=== PATIENT | female | born 1950 | race Caucasian/White ===

== ENCOUNTER 2017-03-31 07:25 | Day surgery (SDC) | payer MEDICARE, BC ==
[2017-03-31 07:39] VITALS: BP 133/79
--- NOTE | 2017-03-31 08:08 | OR ---
Anesthesia Pre Procedure Eval Date of Service: 03/31/17 Pre Procedure Evaluation: Last Vital Signs Temp 36.2 C L 03/31/17 07:36 Pulse 64 03/31/17 07:36 Resp 16 03/31/17 07:36 BP 133/79 03/31/17 07:36 Pulse Ox 95 03/31/17 07:36 Anesthesia Pre Procedure Evaluation DATE: 03/31/2017 TIME: 8 AM INDICATIONS: Spinal stenosis back and radicular pain PAST MEDICAL HISTORY: Long history of low back and radicular pain treated with medication and therapy. She has had epidural steroid injections in the past with good relief, her most recent one was several years ago. She has had increasing low back and radicular pain over the past few months and is seeking relief with an epidural steroid injection today. EXAM: Heart regular; lungs clear ASSESSMENT OF MEDICAL STATUS: Mrs. Sears has benefited from epidural steroid injections in the past and would be an appropriate candidate for an injection at this time. She is, however, Apixaban (Eliquis) and has last taken at 48 hours ago. Although some hospital policies allow epidural injections after 48 hours of last dose, the current SUE guidelines indicate 3-5 days prior to injection. In reviewing her MRI and x-ray in addition to her habitus, I believe that the procedure will be rather difficult and would err on the side of the longer wait time for injection. PLANNED PROCEDURE: The procedure is deferred until she is able to coordinate a time with the surgery scheduled next week. Home Medications: HOME MEDICATIONS Albuterol Sulfate/Ipratropium [Duoneb 2.5-0.5MG/3ML Soln] 3 ml IH QID 11/30/15 [ Last Taken Unknown] Apixaban [Eliquis] 5 mg PO BID 11/30/15 [Last Taken Unknown] Duloxetine HCl [Cymbalta] 60 mg PO DAILY 11/30/15 [Last Taken Unknown] Fluticasone Propionate [Flonase] 1 spray NS DAILY PRN 11/30/15 [Last Taken Unknown] Fluticasone/Salmeterol [Advair 250-50 Diskus] 1 puff IH BID 11/30/15 [Last Taken Unknown] Levothyroxine Sodium [Unithroid] 200 mcg PO DAILY 11/30/15 [Last Taken Unknown] Lisinopril/Hydrochlorothiazide [Zestoretic 20-25 mg Tablet] 1 each PO DAILY [Last Taken 12/21/15 04:30] Melatonin/Pyridoxine HCl (B6) [Melatonin 10 mg Tablet] 1 each PO HS PRN [Last Taken Unknown] Pregabalin [Lyrica] 150 mg PO BID 11/30/15 [Last Taken Unknown] Sotalol HCl [Betapace] 80 mg PO BID 11/30/15 [Last Taken 12/21/15 04:30] metFORMIN HCL [Glucophage] 1,000 mg PO BIDWM 11/30/15 [Last Taken Unknown] metFORMIN HCL [Glucophage] 250 mg PO BIDWM 11/30/15 [Last Taken Unknown] Acetaminophen [Tylenol] 500 - 1,000 mg PO Q4H PRN 01/25/17 [Last Taken Unknown] Blood-Glucose Meter [Blood Glucose Monitoring] 1 each MC DAILY 01/25/17 [Last Taken Unknown] Celecoxib [Celebrex] 100 mg PO BID 01/25/17 [Last Taken Unknown] Levothyroxine Sodium [Synthroid] 25 mcg PO DAILY 01/25/17 [Last Taken Unknown] Mirabegron [Myrbetriq] 50 mg PO DAILY 01/25/17 [Last Taken Unknown] Rosuvastatin Calcium [Crestor] 20 mg PO DAILY 01/25/17 [Last Taken Unknown] Atorvastatin Calcium [Lipitor] 40 mg PO HS 03/30/17 [Last Taken Unknown]
== END 2017-03-31 07:26 | disposition home or self-care (01) ==
LOC: SUR 07:25
PROVIDERS: ATTEND Internal Medicine
DX: M48.06 Spinal stenosis, lumbar region (principal)

== ENCOUNTER 2017-04-04 08:13 | Day surgery (SDC) | payer MEDICARE, BC ==
--- NOTE | 2017-04-04 08:53 | OR ---
Anesthesia Pre Procedure Eval Date of Service: 04/04/17 Pre Procedure Evaluation: Last Vital Signs Temp 36.1 C L 04/04/17 08:24 Pulse 69 04/04/17 08:24 Resp 16 04/04/17 08:24 BP 105/70 04/04/17 08:24 Pulse Ox 93 04/04/17 08:24 Anesthesia Pre Procedure Evaluation DATE: 04/04/2017 TIME: 45 INDICATIONS: Disc bulge and spinal stenosis right radicular pain PAST MEDICAL HISTORY: Mrs. Sears has had a long history of low back pain which is been treated with medication as well as therapy in the past. When he severe radicular pain occurs the most relief she gets is from epidural steroid injections. She has had several injections in the past lasting variable degrees of time, her most recent injection has been over 2 years. I discussed activities of daily living as well as weight reduction with her she does have an understanding of these treatments and their influence on the back and radicular pain. Her most recent episode of pain has been approximately one year and it has been very little exchange specialist that period of time. Over the past 2-3 months however she has had an extension of the pain into the posterior right thigh. I discussed the procedure and risks as well as the prospect of chronic pain with her. History of GERD: No History of smoking: Dull Smoked prior to procedure: No Counseled on smoking day of procedure: Nonapplicable History of sleep apnea: S Treated for REILLY: Yes EXAM: Heart S1-S2 regular; lungs clear bilaterally ASSESSMENT OF MEDICAL STATUS: Appropriate candidate for labor analgesia PLANNED PROCEDURE: Lumbar epidural steroid injection. Home Medications: HOME MEDICATIONS Albuterol Sulfate/Ipratropium [Duoneb 2.5-0.5MG/3ML Soln] 3 ml IH QID 11/30/15 [ Last Taken Unknown] Apixaban [Eliquis] 5 mg PO BID 11/30/15 [Last Taken Unknown] Duloxetine HCl [Cymbalta] 60 mg PO DAILY 11/30/15 [Last Taken Unknown] Fluticasone Propionate [Flonase] 1 spray NS DAILY PRN 11/30/15 [Last Taken Unknown] Fluticasone/Salmeterol [Advair 250-50 Diskus] 1 puff IH BID 11/30/15 [Last Taken Unknown] Levothyroxine Sodium [Unithroid] 200 mcg PO DAILY 11/30/15 [Last Taken Unknown] Lisinopril/Hydrochlorothiazide [Zestoretic 20-25 mg Tablet] 1 each PO DAILY [Last Taken 04/04/17 07:00] Melatonin/Pyridoxine HCl (B6) [Melatonin 10 mg Tablet] 1 each PO HS PRN [Last Taken Unknown] Pregabalin [Lyrica] 150 mg PO BID 11/30/15 [Last Taken Unknown] Sotalol HCl [Betapace] 80 mg PO BID 11/30/15 [Last Taken 04/04/17 07:00] metFORMIN HCL [Glucophage] 1,000 mg PO BIDWM 11/30/15 [Last Taken Unknown] metFORMIN HCL [Glucophage] 250 mg PO BIDWM 11/30/15 [Last Taken Unknown] Acetaminophen [Tylenol] 500 - 1,000 mg PO Q4H PRN 01/25/17 [Last Taken Unknown] Blood-Glucose Meter [Blood Glucose Monitoring] 1 each MC DAILY 01/25/17 [Last Taken Unknown] Celecoxib [Celebrex] 100 mg PO BID 01/25/17 [Last Taken Unknown] Levothyroxine Sodium [Synthroid] 25 mcg PO DAILY 01/25/17 [Last Taken Unknown] Mirabegron [Myrbetriq] 50 mg PO DAILY 01/25/17 [Last Taken Unknown] Rosuvastatin Calcium [Crestor] 20 mg PO DAILY 01/25/17 [Last Taken Unknown] Atorvastatin Calcium [Lipitor] 40 mg PO HS 03/30/17 [Last Taken Unknown]
[2017-04-04] MEDS ORDERED: DEXAMETHASONE SOD PHOSPHATE 10 MG/ML VIAL IJ ONE (09:10)
[2017-04-04] MEDS ORDERED: LIDOCAINE HCL/PF 5 ML VIAL IJ ONE (09:10)
[2017-04-04] MEDS ORDERED: IOPAMIDOL 20 ML VIAL IJ ONE (09:10)
--- NOTE | 2017-04-04 09:23 | OR ---
Anesthesia Procedure Note - Anesthesia Procedure Note Date of Service: 04/04/17 Narrative: Vital Signs - Last Taken Temp 36.1 C L 04/04/17 08:24 Pulse 69 04/04/17 08:24 Resp 16 04/04/17 08:24 BP 105/70 04/04/17 08:24 Pulse Ox 93 04/04/17 08:24 04/04/17 09:30 ANESTHESIA PROCEDURE NOTE Date of Procedure: 04/04/2017 Time of procedure: 9:05 AM. Performed by: Shiv Boyd CRNA, FRAMING SPECIALIST, MSN Vault Clerk: Ashwini Lawson RN. Preprocedure diagnosis: Disc bulge, spinal stenosis, low back and right radicular pain. Post procedure diagnosis: Same. Procedure: Epidural Steroid Injection L4 5. Indications: Low back and right radicular pain. Findings: In addition to the preanesthesia evaluation I also reviewed with miserable her [place] prescription. She last took her L Monday of last week making it safe to proceed at this time. In addition she had mentioned in allergy to IV contrast. She stated that the Betadine was never an issue in the past however she did have a rash with the IVP dye. I discussed the treatment with the use of contrast and that the amount of contrast would be minimized. In addition I explained if Benadryl helped her sleep she should feel free to take that as it would be a good antihistamine in case of any rash. Details of the procedure: After the MRI report and films were reviewed, the patient was interviewed where risks and the procedure were explained. The patient was then brought to over #3 and was placed in the prone position. The back was prepped with DuraPrep and draped in a sterile fashion. The lumbar area was identified under fluoroscopy and the L4 5 right space was localized with 1% lidocaine solution. The epidural space was identified using loss of resistance technique using a #20-gauge Touhy needle. 1 mL of Isovue was injected while the C-arm was positioned in the lateral orientation. The C-arm was then readjusted to an AP view and Isovue 200 1 milliliters was injected demonstrating a spread at the affected area. Dexamethasone 10mg and lidocaine 1 % 5 mL was injected, stylette was replaced and the epidural needle removed. A Band-Aid was then applied to the injection site, patient was placed in a supine position for 5 minutes then returned to ASU with good relief of pain, from a for /10 to 0/10. EBL: None. Energy: 12.7 Seconds, 9.65 mGy Fluids: N/A. Specimen: N/A. Post procedure condition: The patient tolerated the procedure well. No complications were noted. Thank you for this consultation. Shiv Boyd CRNA, MSN, FRAMING SPECIALIST 04/04/17 09:36
[2017-04-04 10:03] VITALS: BP 130/72
== END 2017-04-04 08:14 | disposition home or self-care (01) ==
LOC: AMB 08:13
PROVIDERS: ATTEND Internal Medicine
PROC: 3E0S3BZ Introduction of Anesthetic Agent into Epidural Space, Percutaneous Approach (ICD-10-PCS; 2017-04-04)
PROC: 3E0S33Z Introduction of Anti-inflammatory into Epidural Space, Percutaneous Approach (ICD-10-PCS; principal; 2017-04-04 09:15)
DX: M51.26 Other intervertebral disc displacement, lumbar region (principal); M48.06 Spinal stenosis, lumbar region; Z68.43 Body mass index [BMI] 50.0-59.9, adult